=== PATIENT | female | born 1995 | race African-American/Black ===

== ENCOUNTER 2024-06-16 12:01 | Emergency (ER) | payer OTHER ==
[~2024-06-16] VITALS: Ht 165.1 cm; Wt 65.0 kg
[2024-06-16 12:02] VITALS: TEMP 39.6; O2SAT 99
[2024-06-16] MEDS ORDERED: IBUP-1653 PO (12:05)
[2024-06-16] MEDS: IBUPROFEN 600MG TABLET PO ONE (12:30)
[2024-06-16] MEDS: METOCLOPRAMIDE HCL 10MG TABLET PO ONE (12:30)
[2024-06-16] MEDS: DIPHENHYDRAMINE 25MG CAPSULE PO ONE (12:57)
[2024-06-16 13:13] LABS: CLARITY URINE CLEAR (CLEAR); COLOR URINE YELLOW (YELLOW); GLUCOSE URINE NEGATIVE (NEGATIVE); KETONES URINE NEGATIVE (NEGATIVE); LEUKOCYTE ESTERASE URINE NEGATIVE (NEGATIVE); NITRITE URINE NEGATIVE (NEGATIVE); OCCULT BLOOD URINE 1+ (NEGATIVE); PH URINE 5.5 (4.5-8.0); PROTEIN URINE NEGATIVE (NEGATIVE); SPECIFIC GRAVITY URINE 1.021 (1.005-1.030)
[2024-06-16 13:15] LABS: CHLORIDE 103 mEq/L (98-107); POTASSIUM 3.5 mEq/L (3.5-5.1); SODIUM 138 mEq/L (136-145)
[2024-06-16 13:16] LABS: CALCIUM 9.3 mg/dL (8.7-10.4); CARBON DIOXIDE 25 mEq/L (21-32)
[2024-06-16 13:21] LABS: CREATININE 0.8 mg/dL (0.6-1.0); GLUCOSE 88 mg/dL (70-105); HEMATOCRIT. 39.7 % (36.0-48.0); HEMOGLOBIN. 12.9 g/dL (12.0-16.0); MEAN CORPUSCULAR HEMOGLOBIN 27.3 pg (28.0-32.0); MEAN CORPUSCULAR HGB CONC 32.4 g/dL (31.0-37.0); MEAN CORPUSCULAR VOLUME 84.1 fL (81.0-99.0); MEAN PLATELET VOLUME 9.5 fl (7.4-10.4); PLATELET 209 x1000/uL (130-400); RED BLOOD CELL COUNT 4.73 mill/uL (4.2-5.4); RED CELL DISTRIBUTION WIDTH 12.9 % (11.6-14.6); UREA NITROGEN BLOOD 6 mg/dL (9-23)
[2024-06-16 13:23] LABS: ALANINE AMINOTRANSFERASE 14 IU/L (10-49); ALBUMIN 4.4 g/dL (3.2-4.8); ASPARTATE AMINOTRANSFERASE 20 IU/L (<34)
[2024-06-16 13:24] LABS: BILIRUBIN DIRECT 0.5 mg/dL (<=3.0); BILIRUBIN TOTAL 1.8 mg/dL (0.1-1.0); PROTEIN TOTAL 7.5 g/dL (6.0-8.3)
[2024-06-16 13:33] LABS: DIFFERENTIAL COMMENT 1
[2024-06-16 13:46] LABS: HCG SCREEN NEGATIVE
[2024-06-16 13:57] LABS: BACTERIA URINE TRACE; RBC URINE NONE SEEN /hpf (0-2); SQUAMOUS EPITHELIAL CELL URINE 1+ /lpf (RARE/1+); WBC URINE 0-2 /hpf (0-2); YEAST URINE NONE SEEN
[2024-06-16 13:58] LABS: MUCUS URINE TRACE /lpf (< = 2+)
[2024-06-16 14:17] LABS: PLATELET ESTIMATE NORMAL
[2024-06-16 14:55] LABS: INFLUENZA TYPE A Presumptive Negative (Pres. Neg.); INFLUENZA TYPE B Presumptive Negative (Pres. Neg.)
[2024-06-16 14:57] LABS: RESPIRATORY SYNCYTIAL VIRUS Not Detected (Not Detectd)
[2024-06-16 15:22] VITALS: BP 100/50; PULSE 86; RESP 14; O2SAT 99
[2024-06-16] MEDS ORDERED: POLY17PO3 MT (15:57)
[2024-06-16] MEDS ORDERED: IBUP-2029 MT (15:57)
[2024-06-16] MEDS ORDERED: P50 MT (15:57)
== END 2024-06-16 16:39 | disposition home or self-care (01) ==
LOC: ER 12:01
DX: K50.10 Crohn's disease of large intestine without complications (principal); J06.9 Acute upper respiratory infection, unspecified; Z79.899 Other long term (current) drug therapy; Z88.5 Allergy status to narcotic agent
CPT/HCPCS: 99284; 70450; 71045; 80076; 80048; 81003; 81025; 84703; 87430; 83605; 83690; 85025; 87420; 87040; 87804 ×2; 36415; 84145; 74176; 87070; Q0163; J8597

== ENCOUNTER 2025-02-14 20:37 | Emergency (ER) | payer MEDICAID ==
[~2025-02-14] VITALS: Ht 154.9 cm; Wt 69.0 kg
[~2025-02-14 20:37] MED LIST: IBUP-1455 MT; IBUP-1653 PO; P50 MT; POLY17PO3 MT
[2025-02-14 20:47] VITALS: TEMP 36.7; O2SAT 100
[2025-02-14] MEDS: IBUPROFEN 600MG TABLET PO ONE (23:13)
[2025-02-14] MEDS: LIDOCAINE 5% PATCH TOP SCH (23:17)
[2025-02-14] MEDS ORDERED: LIDO-53 TP (23:41)
[2025-02-14] MEDS ORDERED: IBUP-1455 MT (23:41)
[2025-02-15] VITALS: BP 116/69; PULSE 70; RESP 18; O2SAT 100
== END 2025-02-15 00:03 | disposition home or self-care (01) ==
LOC: ER 20:37
DX: M25.812 Other specified joint disorders, left shoulder (principal); M54.12 Radiculopathy, cervical region; K50.90 Crohn's disease, unspecified, without complications; Z88.5 Allergy status to narcotic agent
CPT/HCPCS: 71045; 73030; 99284